=== PATIENT | male | born 1965 | race Caucasian/White ===

== ENCOUNTER 2019-07-15 08:18 | Inpatient (IN) | payer OTHER ==
[~2019-07-15] VITALS: Ht 185.4 cm; Wt 85.3 kg
[~2019-07-15 08:18] MED LIST: CO-ENZYME Q-1010 MG PO; IBUPROFEN 400400 M1 PO; NEURONTIN300 MG PO; PROAIR HFA8.5 GM INH
[2019-07-15 08:45] VITALS: BP 164/85
[2019-07-15 12:35] VITALS: BP 117/80
--- NOTE | 2019-07-15 17:16 | NUR ---
Pt came to unit from pacu approx 1235. A&Ox4. Denies pain. Dressing on lower back d/c/i. Tolerated diet well. No nausea. Attempted to walk with patient. When pt got up from bed he states he still feels some numbness and was not steady on his feet. Pt states he might stay overnight.
[2019-07-15 17:57] VITALS: BP 135/63
[2019-07-15 19:25] VITALS: BP 112/66
--- NOTE | 2019-07-15 21:30 | NUR ---
ASSESMENT COMPLETED. PT VOIDING OKAY. PT REPORTS NO PAIN AND OBSERVED AMBULATING IN ROOM.VSS. DENIES ANY NAUSEA OR VOMITING.GOOD SENSATION, MOVEMENT AND CIRCULATION NOTED TO ALL EXTREMITIES.PT READY TO D/C HOME. PT ESCORTED OFF UNIT AND LEFT VIA PRIVATE VEHICLE.
[2019-07-15 21:40] VITALS: BP 112/66
--- NOTE | 2019-07-18 09:47 | O ---
[facility] [place] [address] OPERATIVE REPORT Name: BILLY LUND Room #: 448-P [facility] IN M.R.#: [id number] Admission: 07/15/19 Attend Phys: Kannan Desai MD Discharge: 07/15/19 Date of : 67 Report #: [id number] THIS REPORT FOR: //name// CC: Kannan Desai [facility] physician/PCP DATE OF SERVICE: 07/15/2019 PREOPERATIVE DIAGNOSIS: Herniated lumbar disk, L4-L5, left with radiculopathy. POSTOPERATIVE DIAGNOSIS: Herniated lumbar disk, L4-L5, left with radiculopathy. PROCEDURE: Decompressive laminectomy and diskectomy, L4-L5, left. SURGEON: Kannan Desai MD. 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 Since then, he has had moderate back pain, but without much leg pain, recently had increasing left leg pain, numbness and weakness with a foot drop deformity consistent with an L5 radiculopathy pattern. New MRI study confirms an extruded disk fragment at L4-L5 toward the left side causing nerve root impingement. Given these findings and progressive neurologic deficit, he has elected to go ahead with surgical laminectomy and diskectomy. DESCRIPTION OF PROCEDURE: The patient was taken to the operating room where he was placed under general anesthesia. Prophylactic intravenous antibiotics were administered. He was turned to the prone position. The low back was meticulously prepped and draped. A preoperative C-arm view was obtained localizing the appropriate level. A skin incision was then made over the L4-L5 interspace slightly to the left of midline. This was carried through subcutaneous tissues and fascia. The paraspinal muscles were retracted laterally exposing the lamina of L4 and L5. A small laminotomy in the inferior aspect of L4 and the superior aspect of L5 was created. This was extended out laterally slightly extending into the facet joint, allowing good visualization of the canal. Another C-arm view was obtained confirming that I was at the appropriate level. The dura and nerve root were retracted the midline. The L5 root was found to be somewhat erythematous, but otherwise appeared to be intact and stable. Once the nerve root was freed up and retracted, there was an obvious moderate sized extruded disk fragment. This had extended distally and out toward the neural foramina causing moderate impingement on the nerve root. The fragment was easily freed up with a small nerve hook and removed. This seemed to free up the nerve root and decompressed the canal quite nicely. The canal was carefully inspected proximally and distally and across the midline. No other extruded disk fragments were identified. The canal was then gently packed with cottonoids to allow good retraction and protection of the nerve root. The disk was well visualized. There was a small opening, which was [facility] [address] [place] [address] OPERATIVE REPORT Name: BILLY LUND Room #: 448-P DIS IN M.R.#: [id number] Admission: 07/15/19 Attend Phys: Kannan Desai MD Discharge: 07/15/19 Date of : 67 Report #: [id number] enlarged and probed. Pituitary rongeurs were then used to debride the disk space. A moderate amount of loose degenerative disk debris was removed from the disk. Another C-arm view was obtained with a probe in the disk space confirming that I was at the appropriate L4-L5 level. The disk was nicely decompressed. No further disk debris was identified. The wound was copiously irrigated. Good hemostasis was established, 40 mg of Depo-Medrol were left in the epidural space. A small amount of thrombin was used as well. A small sheet of Gelfoam was left over the laminectomy site, protecting the nerve root and keeping the Depo-Medrol in appropriate location. The muscle layer was then reapproximated with 0 Vicryl suture. The fascia was closed with 0 Vicryl. The subcutaneous tissues were closed with 2-0 Monocryl. The skin was closed with 2-0 Prolene supplemented with Steri-Strips. About 20 mL of 0.5% Marcaine with epinephrine was injected into the soft tissues and muscle layer. A sterile dressing was applied. The patient was awakened and returned to recovery room in good condition. <ELECTRONICALLY SIGNED> By: Kannan Desai MD 07/18/19 0947 1201 1217 Kannan Desai MD /nt
--- NOTE | 2019-07-18 20:06 | PATH ---
[facility] [address] [place] [address] PATHOLOGY RPT PROCEDURE Name: KEVIN LUND Room #: 448-P DIS IN M.R.#: [id number] Admission: 07/15/19 Date of : 67 Discharge: 07/15/19 Report #: [id number] Path Case #: [id number] [facility] Accession Number: [id number] . 01 Material submitted: . vertebral column - L4 AND L5 DISC . 01 Clinical history: . Radiculopathy, lumbar region . 02 Diagnosis: Disc, L4 and L5 disc, discectomy: - Myxoid cartilaginous material with reactive changes, compatible with nucleus pulposus showing neovascularization. 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 02 Electronically signed: . Sydnie Schmitz MD, Pathologist NPI- [id number] . 01 Gross description: . The specimen is received in formalin, labeled "[place], L4-L5 disc". Received are multiple segments of pale brown fibrous tissue measuring 2.5 x 1.8 x 0.7 cm in aggregate dimensions. The specimen is submitted entirely in cassette A1. (CAA; 07/15/2019) QAC/QAC 07/15/2019 1608 Local . 02 Pathologist provided ICD-10: M54.16 . 02 CPT . 151284 Specimen Comment: A courtesy copy of this report has been sent to [phone] Specimen Comment: Report sent to Performed at: [address], [place], [place] [id number] MD Yossi Garcia MD Phone: [phone] Performed at: [address] [id number] MD Sydnie Schmitz MD Phone: [phone]
== END 2019-07-15 21:50 | disposition home or self-care (01) | DRG 520 ==
LOC: TBA 08:18 → OR 08:18 → TBA 08:19 → OR 12:15 → 4S 12:15 → OR 15:22 → 4S 21:50
PROVIDERS: ADMIT Orthopaedic Surgery
PROC: 0SB20ZZ Excision of Lumbar Vertebral Disc, Open Approach (ICD-10-PCS; principal; 2019-07-15)
PROC: 01NB0ZZ Release Lumbar Nerve, Open Approach (ICD-10-PCS; principal; 2019-07-15)
DX: M51.16 Intervertebral disc disorders with radiculopathy, lumbar region (principal); Z82.61 Family history of arthritis; Z80.3 Family history of malignant neoplasm of breast; Z80.0 Family history of malignant neoplasm of digestive organs; Z82.49 Family history of ischemic heart disease and other diseases of the circulatory system; Z88.6 Allergy status to analgesic agent; Z79.899 Other long term (current) drug therapy
CPT/HCPCS: 10102; 50010; 50101; 50402; 50704; 50850; 56525; 62110; 62900; 70005